=== PATIENT | female | born 1945 | race Caucasian/White ===

== ENCOUNTER → 2024-01-22 06:49 | Outpatient (REF) | payer MEDICARE, OTHER, SELFPAY ==
[2024-01-22 08:35] LABS: ALT (SGPT) 17 U/L (0-35); AST (SGOT) 23 U/L (14-36); Albumin 4.7 g/dl (3.5-5.0); Alkaline Phosphatase 77 U/L (38-126); Direct Bilirubin 0.3 mg/dl (0.0-0.4); Glucose 124 mg/dl (70-99); Glycohemoglobin (HgbA1c) 5.9 % (4.0-5.6); HDL Cholesterol 70 mg/dl; LDL Cholesterol, Calculated 169 mg/dl; Total Bilirubin 1.1 mg/dl (0.2-1.3); Total Cholesterol 267 mg/dl (50-199); Total Protein 7.1 g/dl (6.3-8.2); Triglyceride 141 mg/dl (10-149); Very Low Density Lipoprotein 28 mg/dl (0-30)
== END ==
LOC: REG 06:49
PROVIDERS: ATTENDING PHYSICIAN Internal Medicine; FAMILY PHYSICIAN Internal Medicine
DX: E11.9 Type 2 diabetes mellitus without complications (principal); I10 Essential (primary) hypertension; E78.5 Hyperlipidemia, unspecified
CPT/HCPCS: 36415; 80061; 80076; 82947; 83036

== ENCOUNTER → 2024-03-05 07:53 | Outpatient (REF) | payer MEDICARE, OTHER, SELFPAY | LOC: WDC 07:53 | PROVIDERS: ATTENDING PHYSICIAN Internal Medicine | DX: Z12.31 Encounter for screening mammogram for malignant neoplasm of breast (principal) | CPT/HCPCS: 77063; 77067 ==

== ENCOUNTER → 2024-04-05 06:45 | Outpatient (REF) | payer MEDICARE, OTHER, SELFPAY ==
[2024-04-05 07:54] LABS: % Basophils 1.5 % (0-2); % Eosinophils 1.9 % (0-6); % Immature Granulocytes 0.3 % (0-0.5); % Monocytes 10.7 % (1.7-9.3); % Neutrophils 60.6 % (42.2-75.2); Absolute Basophils 0.1 10^3/uL (0-0.2); Absolute Eosinophils 0.1 10^3/uL (0-0.7); Absolute Lymphocytes 1.5 10^3/uL (1.2-3.4); Absolute Monocytes 0.7 10^3/uL (0.1-0.6); Absolute Neutrophils 3.7 10^3/uL (1.4-6.5); Hemoglobin 12.9 g/dL (12.0-16.0); Mean Corp Hgb Conc. 35.8 g/dL (33.0-37.0); Mean Corpuscular Hgb 34.1 pg (27.0-31.0); Mean Corpuscular Volume 95.2 fL (81.0-99.0); Mean Platelet Volume 9.7 fL (7.4-10.4); Nucleated Red Blood Cells % 0 %; Platelet Count 193 10^3/uL (130-400); Red Blood Cell Count 3.78 10^6/uL (4.20-5.40); Red Cell Dist. Width 12.2 % (11.5-14.5); White Blood Cell Count 6.2 10^3/uL (4.8-10.8)
[2024-04-05 08:21] LABS: ALT (SGPT) 18 U/L (0-35); AST (SGOT) 21 U/L (14-36); Albumin 4.5 g/dl (3.5-5.0); Alkaline Phosphatase 56 U/L (38-126); Blood Urea Nitrogen 17 mg/dl (7-17); Calcium 9.4 mg/dl (8.4-10.2); Carbon Dioxide 26 mmol/L (22-30); Chloride 99 mmol/L (98-107); Glucose 135 mg/dl (70-99); HDL Cholesterol 72 mg/dl; LDL Cholesterol, Calculated 78 mg/dl; Potassium 4.6 mmol/L (3.5-5.1); Sodium 139 mmol/L (135-145); Total Bilirubin 0.7 mg/dl (0.2-1.3); Total Cholesterol 173 mg/dl (50-199); Total Protein 6.9 g/dl (6.3-8.2); Triglyceride 118 mg/dl (10-149); Very Low Density Lipoprotein 23 mg/dl (0-30); eGFR > 60.00
[2024-04-05 08:43] LABS: Urine Albumin Negative (Neg - Trace); Urine Bilirubin Negative (Negative); Urine Character Clear (Clear); Urine Color Yellow; Urine Glucose Negative (Negative); Urine Ketone Negative (Negative); Urine Leukocyte Negative (Negative); Urine Nitrite Negative (Negative); Urine Occult Blood Negative (Negative); Urine Urobilinogen Negative (Neg - 1+); Urine pH 6.5 (5.0-9.0)
[2024-04-05 08:46] LABS: TSH Reflex To Free T4 4.58 uIU/ml (0.47-4.68)
[2024-04-05 11:27] LABS: Protein/creatinine Ratio 0.1; Urine Protein 6 mg/dl
[2024-04-05 11:46] LABS: Glycohemoglobin (HgbA1c) 5.8 % (4.0-5.6)
== END ==
LOC: REG 06:45
PROVIDERS: ATTENDING PHYSICIAN Specialist; FAMILY PHYSICIAN Internal Medicine; OTHER PHYSICIAN Family Medicine
DX: E11.9 Type 2 diabetes mellitus without complications (principal); E78.5 Hyperlipidemia, unspecified; I10 Essential (primary) hypertension; E03.9 Hypothyroidism, unspecified; E83.52 Hypercalcemia; R31.1 Benign essential microscopic hematuria; R80.9 Proteinuria, unspecified
CPT/HCPCS: 36415; 80053; 80061; 81003; 82570; 83036; 84156; 84443; 85025

== ENCOUNTER → 2024-04-30 09:05 | Outpatient (REF) | payer MEDICARE, OTHER, SELFPAY | LOC: WDC 09:05 | PROVIDERS: ATTENDING PHYSICIAN Obstetrics & Gynecology Gynecology; FAMILY PHYSICIAN Internal Medicine | DX: N64.4 Mastodynia (principal) | CPT/HCPCS: 76642; 77061; 77065 ==

== ENCOUNTER 2024-08-06 06:28 | Day surgery (SDC) | payer MEDICARE, OTHER, SELFPAY ==
[2024-08-06 09:42] LABS: Glucose - Point of Care 110 mg/dl (70-99)
== END 2024-08-06 12:17 | disposition home or self-care (01) ==
LOC: GI 06:28
PROVIDERS: ATTENDING PHYSICIAN Internal Medicine Gastroenterology
DX: Z12.11 Encounter for screening for malignant neoplasm of colon (principal); K57.30 Diverticulosis of large intestine without perforation or abscess without bleeding; K62.89 Other specified diseases of anus and rectum; R12 Heartburn; K31.7 Polyp of stomach and duodenum; K22.89 Other specified disease of esophagus; D12.2 Benign neoplasm of ascending colon; D12.0 Benign neoplasm of cecum; D12.3 Benign neoplasm of transverse colon; Z80.0 Family history of malignant neoplasm of digestive organs
CPT/HCPCS: 45385; 45380; 43239; 88305; 88312; 82962

== ENCOUNTER 2024-08-16 22:01 | Emergency (ER) | payer MEDICARE, OTHER, SELFPAY ==
[2024-08-16 22:02] VITALS: BP 150/94
--- NOTE | 2024-08-17 00:20 | ED.GENMED ---
History of Present Illness
General
Chief Complaint: Abdominal Pain
Source: patient
Exam Limitations: none
Time Seen by Provider: 08/17/24 00:13
History of Present Illness
History of Present Illness:
See MDM
Past History
Past History
ED Past Medical History: HTN and Hypercholesterolemia
Social History
Tobacco: Non-smoker
Alcohol: None
Drug: None
Personal:
Living: with family
Family History
Family History: Other (Father with coronary disease and CABG, mother with A. fib ablation coronary disease and TAVR, brother with CABG)
Phy Exam
Physical Exam
Physical Exam:
See MDM
Course
Orders/Labs/Results
Orders:
Orders
08/17/24 00:19
Electrocardiogram (*1) Urgent
Reason for Study: Abdominal Pain
CT Abd/pelvis W Iv Cont Urgent
Comment:
Reason For Exam: Left flank and abd pain
EKG- Treatment ONCE
HydrOXYZINE [Atarax] 50 mg PO NOW STA
Ketorolac [Toradol] 30 mg IV NOW STA
08/17/24 00:52
Complete Blood Count/With Diff Urgent
Comprehensive Metabolic Panel Urgent
Lipase Urgent
Abnormal Lab Results
08/17/24
00:52
WBC 11.0 H 10^3/uL
(4.8-10.8)
RBC 3.41 L 10^6/uL
(4.20-5.40)
Hgb 11.6 L g/dL
(12.0-16.0)
Hct 31.7 L %
(37.0-47.0)
MCH 34.0 H pg
(27.0-31.0)
Abs Immat Gran (auto) 0.1 H 10^3/uL
(0-0.05)
Absolute Neuts (auto) 10.1 H 10^3/uL
(1.4-6.5)
Absolute Lymphs (auto) 0.6 L 10^3/uL
(1.2-3.4)
Neutrophils % 91.9 H %
(42.2-75.2)
Lymphocytes % 5.2 L %
(20.5-51.1)
Sodium 132 L mmol/L
(135-145)
BUN 19 H mg/dl
(7-17)
Glucose 240 H mg/dl
(70-99)
Total Protein 6.0 L g/dl
(6.3-8.2)
08/17/24 00:52
08/17/24 00:52
Vital Signs
Initial and Last Documented VS:
Initial Vital Signs
Temp Pulse Resp BP Pulse Ox
98.4 F 69 18 150/94 99
08/16/24 22:02 08/16/24 22:02 08/16/24 22:02 08/16/24 22:02 08/16/24 22:02
Last Documented Vital Signs
Temp Pulse Resp BP Pulse Ox
98.4 F 76 16 142/55 98
08/16/24 22:02 08/17/24 00:58 08/17/24 00:58 08/17/24 00:58 08/17/24 00:58
MDM/Problems Addressed
Differential Diagnosis Includes:
HPI and MDM Narrative:
78-year-old female presenting for evaluation of left-sided abdominal pain. She noted earlier today as she was sitting down. It did come on suddenly. The pain has been somewhat constant. She denies a history of kidney stones. Patient currently
dealing with generalized body rash after recent colonoscopy and endoscopy. Currently on steroids and Benadryl as needed. On exam, she is well-appearing nontoxic. I do notice the rash to her abdomen, back and extremities consistent with drug rash.
Will give dose of Atarax since Benadryl is not helping much. Given her left abdominal pain, will obtain CT. Doubt free air from recent endoscopy or colonoscopy
Patient denies any urinary symptoms
Physical exam
General: Well appearing and non-toxic
HEENT: protecting airway
Neck: appears supple
CV: No evidence of cyanosis
Resp: No accessory muscle use
Abd: Non-distended. Mild left flank and upper abdominal pain.
Extremities: No deformities
Neuro: alert
Psych: Normal affect
Skin: Generalized lower extremity and abdominal rash
Problems Addressed including Acute and Chronic Conditions affecting care:
1. Rash
Acuity: acute
Prognosis: stable
Details: Likely drug rash. Will give dose of Atarax
2. Abdominal pain
Acuity: acute
Prognosis: stable
Details: Will obtain CT abdomen/pelvis
Updates
CT without acute abnormality other than constipation. We discussed MiraLAX. Patient feeling much better after Atarax.
Differential Diagnosis (but not limited to): Drug rash, allergic reaction, intra-abdominal free air, diverticulosis, kidney stone
Testing considered: Urinalysis but she denies any symptoms
Drug therapy (if applicable): OTC meds, please see d/c instruction regarding Rx drugs
Amount and/or Complexity of Data Reviewed
Clinical info obtained from: Patient
External data reviewed: N/A
Labs I independently reviewed (but not limited to): Hyperglycemia but likely the setting of recent steroid use
Radiology: The CT scan was personally and independently reviewed. In addition, official CT report reviewed.
Pulse Ox: not hypoxic
EKG independently reviewed: Sinus rhythm, normal axis, no STEMI
Nuclear Medicine Supervisor: N/A
Critical Care: N/A
Risk of Complication:
Social Determinants of health: Good social support
Discussed with other providers: N/A
Escalation of Care includes Admit/Obs: After being observed in the Emergency Department, pt stable for discharge.
Occasional wrong word or 'sound a like' substitutions may have occurred due to the inherent limitations of voice recognition software. Read the chart carefully and recognize, using context, where substitutions have occurred.
*Critical Care Note
Total Time (30-74mins, 75-104mins- exclusive of procedures): Not Applicable
ED Attending Note
-
Portions of this chart may have been created with voice recognition software.� Occasional wrong word or��sound alike� substitutions may have occurred due to the inherent limitations of voice recognition software.
Discharge Plan
Departure
Patient Disposition: Home (Routine Discharge)
Date of Disposition: 08/17/24
Time of Disposition: 03:00
Patient with high blood pressure during this ER visit?: Yes
Discharge Problem:
Acute constipation, Allergic reaction
Instructions: Constipation, Adult (DC), BLOOD PRESSURE
Prescriptions:
New
hydroxyzine HCl 25 mg tablet
25 mg PO TID PRN (Reason: itching) Qty: 20 0RF
No Action
metformin 500 MG tablet
500 mg PO DAILY
levothyroxine 75 MCG tablet
75 mcg PO DAILY
candesartan 16 MG tablet
16 mg PO DAILY
rosuvastatin [Crestor] 5 MG tablet
5 mg PO DAILY
esomeprazole magnesium [Nexium Packet] [address] for susp in packet
40 mg PO DAILY
coenzyme Q10 50 MG tablet,chewable
50 mg PO HS
Tumeric
1 tab PO DAILY
meclizine 25 MG tablet
25 mg PO Q8HPRN PRN (Reason: dizziness) Qty: 12 0RF
Referrals:
Norm Gillespie MD [Family Provider] -
Activity Restrictions/Additional Instructions:
Please return for any worsening symptoms.
You may return at any time if you have further concerns.
Please follow up with your doctor at the first available appointment, preferably this week.
As we discussed, please start MiraLAX to help with constipation. If the hydroxyzine is helping with the itch, you can start using it instead of Benadryl.
Thank you for choosing [facility].
Interventions
Interventions:
*Risk Screen - Suicide Last Done: 08/16/24 22:02
*General Assessment Last Done: 08/16/24 22:02
*Neglect/Abuse Screening Last Done: 08/16/24 22:02
*ED- Fall Risk Assessment Last Done: 08/17/24 00:58
*ED COVID-19 Vaccine History Last Done: 08/16/24 22:02
ZA-Updunz-Vhpahznezp Assessment Last Done: 08/17/24 00:58
Discharge Date and Time
Print Language: [place] CITIZEN
[2024-08-17] MEDS: TORADOL 30 MG IV (00:53)
[2024-08-17] MEDS: ATARAX 50 MG PO (00:54)
[2024-08-17 00:58] VITALS: BP 142/55; BMI 23.4
[2024-08-17 01:03] LABS: % Basophils 0.1 % (0-2); % Immature Granulocytes 0.5 % (0-0.5); % Lymphocytes 5.2 % (20.5-51.1); % Monocytes 2.3 % (1.7-9.3); % Neutrophils 91.9 % (42.2-75.2); Absolute Immature Granulocytes 0.1 10^3/uL (0-0.05); Absolute Lymphocytes 0.6 10^3/uL (1.2-3.4); Absolute Monocytes 0.3 10^3/uL (0.1-0.6); Absolute Neutrophils 10.1 10^3/uL (1.4-6.5); Hematocrit 31.7 % (37.0-47.0); Hemoglobin 11.6 g/dL (12.0-16.0); Mean Corp Hgb Conc. 36.6 g/dL (33.0-37.0); Mean Platelet Volume 9.2 fL (7.4-10.4); Nucleated Red Blood Cells % 0 %; Platelet Count 227 10^3/uL (130-400); Red Blood Cell Count 3.41 10^6/uL (4.20-5.40)
[2024-08-17 01:25] LABS: ALT (SGPT) 19 U/L (0-35); AST (SGOT) 19 U/L (14-36); Albumin 3.7 g/dl (3.5-5.0); Alkaline Phosphatase 59 U/L (38-126); Blood Urea Nitrogen 19 mg/dl (7-17); Calcium 9.5 mg/dl (8.4-10.2); Carbon Dioxide 27 mmol/L (22-30); Chloride 98 mmol/L (98-107); Estimated Creatinine Clearance 47 ml/min; Glucose 240 mg/dl (70-99); Lipase 66 U/L (23-300); Potassium 4.7 mmol/L (3.5-5.1); Sodium 132 mmol/L (135-145); Total Bilirubin 0.5 mg/dl (0.2-1.3); eGFR > 60.00
[2024-08-17 03:05] VITALS: BP 148/66
== END 2024-08-17 03:14 | disposition home or self-care (01) ==
LOC: EMR 22:01
PROVIDERS: EMERGENCY PHYSICIAN Student in an Organized Health Care Education/Training Program; FAMILY PHYSICIAN Internal Medicine
DX: K59.09 Other constipation (principal); T78.40XA Allergy, unspecified, initial encounter; Y92.9 Unspecified place or not applicable; R10.9 Unspecified abdominal pain; I10 Essential (primary) hypertension; E78.00 Pure hypercholesterolemia, unspecified; Z82.49 Family history of ischemic heart disease and other diseases of the circulatory system
CPT/HCPCS: 99284; 96374; 74177; 80053; 83690; 85025; 93005; Q9967

== ENCOUNTER → 2024-09-12 06:30 | Outpatient (REF) | payer MEDICARE, OTHER, SELFPAY ==
[2024-09-12 07:16] LABS: Urine Albumin 1+ (Neg - Trace); Urine Bilirubin Negative (Negative); Urine Character Clear (Clear); Urine Color Yellow; Urine Glucose Negative (Negative); Urine Ketone Negative (Negative); Urine Leukocyte 1+ (Negative); Urine Nitrite Negative (Negative); Urine Occult Blood Negative (Negative); Urine Specific Gravity 1.015 (<1.030); Urine Urobilinogen 1+ (Neg - 1+)
[2024-09-12 07:39] LABS: ALT (SGPT) 20 U/L (0-35); AST (SGOT) 22 U/L (14-36); Albumin 4.6 g/dl (3.5-5.0); Alkaline Phosphatase 57 U/L (38-126); Blood Urea Nitrogen 18 mg/dl (7-17); Calcium 9.6 mg/dl (8.4-10.2); Carbon Dioxide 28 mmol/L (22-30); Chloride 102 mmol/L (98-107); Direct Bilirubin 0.3 mg/dl (0.0-0.4); Glucose 144 mg/dl (70-99); HDL Cholesterol 63 mg/dl; LDL Cholesterol, Calculated 108 mg/dl; Potassium 4.5 mmol/L (3.5-5.1); Sodium 138 mmol/L (135-145); Total Bilirubin 0.7 mg/dl (0.2-1.3); Total Cholesterol 193 mg/dl (50-199); Total Protein 6.8 g/dl (6.3-8.2); Triglyceride 111 mg/dl (10-149); Very Low Density Lipoprotein 22 mg/dl (0-30); eGFR > 60.00
[2024-09-12 08:08] LABS: TSH 2.79 uIU/ml (0.47-4.68)
[2024-09-12 08:38] LABS: Urine Amorphous Seen; Urine Squamous Cell 16-20 /LPF (Few); Urine Urothelial Cell 0-2 /LPF (FEW)
[2024-09-12 08:40] LABS: Urine Red Blood Cell 0-2 /HPF (0-2)
[2024-09-12 08:52] LABS: Urine Protein < 5 mg/dl
[2024-09-12 08:54] LABS: Glycohemoglobin (HgbA1c) 6.4 % (4.0-5.6)
== END ==
LOC: REG 06:30
PROVIDERS: ATTENDING PHYSICIAN Specialist; FAMILY PHYSICIAN Internal Medicine
DX: E03.9 Hypothyroidism, unspecified (principal); E11.9 Type 2 diabetes mellitus without complications; E78.5 Hyperlipidemia, unspecified; I10 Essential (primary) hypertension; R80.9 Proteinuria, unspecified; E87.1 Hypo-osmolality and hyponatremia
CPT/HCPCS: 36415; 80053; 80061; 81003; 81015; 82248; 82570; 83036; 84156; 84443

== ENCOUNTER → 2025-01-14 06:52 | Outpatient (REF) | payer MEDICARE, OTHER, SELFPAY ==
[2025-01-14 08:38] LABS: Glycohemoglobin (HgbA1c) 6.3 % (4.0-5.6)
[2025-01-14 09:08] LABS: ALT (SGPT) 18 U/L (0-35); AST (SGOT) 19 U/L (14-36); Albumin 4.5 g/dl (3.5-5.0); Alkaline Phosphatase 49 U/L (38-126); Glucose 144 mg/dl (70-99); HDL Cholesterol 61 mg/dl; LDL Cholesterol, Calculated 147 mg/dl; Total Protein 6.7 g/dl (6.3-8.2); Very Low Density Lipoprotein 26 mg/dl (0-30)
== END ==
LOC: REG 06:52
PROVIDERS: ATTENDING PHYSICIAN Internal Medicine
DX: E11.9 Type 2 diabetes mellitus without complications (principal); E11.59 Type 2 diabetes mellitus with other circulatory complications; Z79.84 Long term (current) use of oral hypoglycemic drugs; E78.5 Hyperlipidemia, unspecified; I10 Essential (primary) hypertension
CPT/HCPCS: 36415; 80061; 80076; 82947; 83036

== ENCOUNTER → 2025-02-19 10:26 | Outpatient (REF) | payer MEDICARE, OTHER, SELFPAY ==
[2025-02-19 18:47] LABS: Urine Character Clear (Clear)
== END ==
LOC: CLAB 10:26
PROVIDERS: ATTENDING PHYSICIAN Specialist
DX: N39.0 Urinary tract infection, site not specified (principal)
CPT/HCPCS: 81003; 87086

== ENCOUNTER → 2025-02-28 09:54 | Outpatient (REF) | payer MEDICARE, OTHER, SELFPAY | LOC: RCS 09:54 | PROVIDERS: ATTENDING PHYSICIAN Nurse Practitioner; FAMILY PHYSICIAN Internal Medicine | DX: R06.00 Dyspnea, unspecified (principal); R53.83 Other fatigue; I10 Essential (primary) hypertension; E78.00 Pure hypercholesterolemia, unspecified | CPT/HCPCS: 93306 ==

== ENCOUNTER → 2025-03-07 07:53 | Outpatient (REF) | payer MEDICARE, OTHER, SELFPAY | LOC: HWRCS 07:53 | PROVIDERS: ATTENDING PHYSICIAN Nurse Practitioner; FAMILY PHYSICIAN Internal Medicine | DX: R06.00 Dyspnea, unspecified (principal); R53.83 Other fatigue; I10 Essential (primary) hypertension; E78.00 Pure hypercholesterolemia, unspecified; R06.09 Other forms of dyspnea | CPT/HCPCS: 78452; 93017; A9500 ==